=== PATIENT | female | born 1965 | race Caucasian/White ===

== ENCOUNTER 2019-03-22 13:13 | Outpatient (REF) | payer OTHER, SELFPAY ==
[2019-03-22 22:31] LABS: Anion Gap 9.6 mmol/L (3-11); BUN 13 mg/dL (7-18); CO2 26.4 mmol/L (21.0-32.0); CREATININE 0.86 mg/dL (0.55-1.02); Calcium 8.8 mg/dL (8.5-10.1); Chloride 103 mmol/L (98-107); Cholesterol 223 mg/dL (50-200); Glucose 92 mg/dL (70-100); Potassium 4.4 mmol/L (3.5-5.1); Sodium 139 mmol/L (136-145); Triglyceride 105 mg/dL (30-150)
[2019-03-22 23:30] LABS: Calculated LDL 109 mg/dL; HDL Cholesterol 93 mg/dL (40-60)
== END 2019-03-22 13:33 ==
LOC: NCHCN 13:13
PROVIDERS: PCP Family Medicine; Visit Provider Family Medicine
DX: Z00.00 Encounter for general adult medical examination without abnormal findings (principal); Z13.220 Encounter for screening for lipoid disorders; Z13.228 Encounter for screening for other metabolic disorders
CPT/HCPCS: 80048; 80061; 83721

== ENCOUNTER 2021-05-21 12:25 | Outpatient (REF) | payer OTHER, SELFPAY ==
--- NOTE | 2021-05-21 09:45 | PAPFT_PTH ---
PATIENT: Melanie Haskins LOC: [facility]#:[id number] AGE/SX: 55/F ROOM: RE05/21/[address]: Fidelia Hardy : 1965 BED: DIS: 05/21/2021 SPEC #: [id number] RECD: 05/22/21 13:02 STATUS: SELAM REScarlett #: [id number] MT: 05/21/21 09:[address]: Fidelia Hardy DEPT: [facility] Cytology RECD BY: Dara Alonzo Tissues: 1 - CX/ENDOCX FOR PAP SMEARS Procedures: PAP THIN PREP/[facility] Screening HPV DNA PROBE Comments: [id number]
== END 2021-05-21 12:26 | disposition home or self-care (01) ==
LOC: NCHCN 12:25
PROVIDERS: PCP Family Medicine; Visit Provider Family Medicine
DX: Z00.00 Encounter for general adult medical examination without abnormal findings (principal); Z12.4 Encounter for screening for malignant neoplasm of cervix; Z11.51 Encounter for screening for human papillomavirus (HPV)
CPT/HCPCS: 88142; 87624

== ENCOUNTER 2021-06-26 08:25 | Outpatient (REF) | payer OTHER, SELFPAY ==
[2021-06-26 22:03] LABS: HCT 39.7 % (36.0-46.0); HGB 13.3 g/dL (11.2-15.7); MCH 30.5 pg (27.0-33.0); MCHC 33.5 % (32.0-36.0); MCV 91.1 fL (80-95); MPV 9.2 fL (8.0-11.0); Platelet Count 412 10^3/uL (130-400); RBC 4.36 10^6/uL (3.93-5.22); RDW 11.6 % (11.7-14.6); RDW-SD 39.2 fL; WBC 8.22 10^3/uL (4.4-10.8)
[2021-06-26 22:14] LABS: Anion Gap 8.9 mmol/L (3-11); BUN 12 mg/dL (7-18); CO2 29.1 mmol/L (21.0-32.0); CREATININE 0.8 mg/dL (0.55-1.02); Calcium 9.7 mg/dL (8.5-10.1); Chloride 104 mmol/L (98-107); Glucose 122 mg/dL (74-106); Sodium 142 mmol/L (136-145)
== END 2021-06-26 08:26 | disposition home or self-care (01) ==
LOC: NCHCN 08:25
PROVIDERS: PCP Family Medicine; Visit Provider Nurse Practitioner Family
DX: R42 Dizziness and giddiness (principal); R11.0 Nausea
CPT/HCPCS: 80048; 85027

== ENCOUNTER 2021-12-17 13:57 | Outpatient (REF) | payer OTHER, SELFPAY ==
[2021-12-17 17:09] LABS: Hemoglobin A1C 5.9 % (<5.7)
[2021-12-17 17:17] LABS: TSH 0.93 uIU/mL (0.36-3.74)
== END 2021-12-17 13:58 | disposition home or self-care (01) ==
LOC: NCHCN 13:57
PROVIDERS: PCP Family Medicine; Visit Provider Family Medicine
DX: F07.81 Postconcussional syndrome (principal); F41.8 Other specified anxiety disorders; Z13.29 Encounter for screening for other suspected endocrine disorder; Z13.1 Encounter for screening for diabetes mellitus
CPT/HCPCS: 83036; 84443

== ENCOUNTER 2021-12-18 19:15 | Outpatient (REF) | payer OTHER, SELFPAY | END 2021-12-18 19:16 | disposition home or self-care (01) | LOC: NCHCN 19:15 | PROVIDERS: PCP Family Medicine; Visit Provider Family Medicine ==

== ENCOUNTER 2022-10-31 21:31 | Outpatient (REF) | payer BC, SELFPAY ==
[2022-10-31 21:59] LABS: HCT 43.4 % (36.0-46.0); HGB 14.7 g/dL (11.2-15.7); MCHC 33.9 % (32.0-36.0); MCV 89 fL (80-95); MPV 9.2 fL (8.0-11.0); Platelet Count 449 10^3/uL (130-400); RDW 11.9 % (11.7-14.6); RDW-SD 38.9 fL; WBC 7.73 10^3/uL (4.4-10.8)
[2022-10-31 22:14] LABS: ALT 22 U/L (14-59); AST 21 U/L (15-37); Albumin 4.1 g/dL (3.4-5.0); Alkaline Phosphatase 90 U/L (46-116); Anion Gap 8.2 mmol/L (3-11); BUN 10 mg/dL (7-18); Bilirubin, Total 0.6 mg/dL (0.2-1.0); CO2 30.8 mmol/L (21.0-32.0); Calcium 9.5 mg/dL (8.5-10.1); Calculated LDL 113 mg/dL (<100); Chloride 102 mmol/L (98-107); Cholesterol 216 mg/dL (<200); Estimated GFR 66.12 (mL/min/1.73m2); Glucose 131 mg/dL (74-106); HDL Cholesterol 85 mg/dL (40-60); Potassium 3.8 mmol/L (3.5-5.1); Sodium 141 mmol/L (136-145); Total Protein 8.1 g/dL (6.4-8.2); Triglyceride 92 mg/dL (<150)
== END 2022-10-31 21:32 | disposition home or self-care (01) ==
LOC: NCHCN 21:31
PROVIDERS: PCP Family Medicine; Visit Provider Internal Medicine
DX: Z13.220 Encounter for screening for lipoid disorders (principal); R73.03 Prediabetes
CPT/HCPCS: 80053; 80061; 85027

== ENCOUNTER 2024-03-23 17:09 | Outpatient (REF) | payer BC, SELFPAY ==
[2024-03-23 21:40] LABS: Anion Gap 8.9 mmol/L (3-11); BUN 12 mg/dL (7-18); CO2 29.1 mmol/L (21.0-32.0); Calcium 9.5 mg/dL (8.5-10.1); Chloride 101 mmol/L (98-107); Estimated GFR 65.71 (mL/min/1.73m2); Glucose 96 mg/dL (74-106); Sodium 139 mmol/L (136-145); Vitamin D 25 Total 41.3 ng/mL (30-100)
== END 2024-03-23 17:10 | disposition home or self-care (01) ==
LOC: NCHCN 17:09
PROVIDERS: PCP Family Medicine; Visit Provider Internal Medicine
DX: S62.91XD Unspecified fracture of right hand, subsequent encounter for fracture with routine healing (principal); X58.XXXD Exposure to other specified factors, subsequent encounter
CPT/HCPCS: 80048; 82306

== ENCOUNTER 2025-07-03 16:23 | Outpatient (REF) | payer BC, SELFPAY ==
[2025-07-03 21:27] LABS: HCT 42.3 % (36.0-46.0); HGB 14.3 g/dL (11.2-15.7); MCH 30.8 pg (27.0-33.0); MCHC 33.8 % (32.0-36.0); MCV 91 fL (80-95); MPV 9.0 fL (8.0-11.0); Platelet Count 441 10^3/uL (130-400); RBC 4.65 10^6/uL (3.93-5.22); RDW 12.5 % (11.7-14.6); RDW-SD 41.2 fL; WBC 7.33 10^3/uL (4.4-10.8)
[2025-07-03 21:49] LABS: Hemoglobin A1C 5.6 % (<5.7)
[2025-07-03 21:52] LABS: Anion Gap 5.7 mmol/L (3-11); BUN 17 mg/dL (7-18); CO2 32.3 mmol/L (21.0-32.0); Calcium 9.0 mg/dL (8.5-10.1); Chloride 102 mmol/L (98-107); Cholesterol 253 mg/dL (<200); Glucose 79 mg/dL (74-106); HDL Cholesterol 90 mg/dL (>or=50); Potassium 4.6 mmol/L (3.5-5.1); Sodium 140 mmol/L (136-145)
== END 2025-07-03 16:24 | disposition home or self-care (01) ==
LOC: NCHCN 16:23
PROVIDERS: PCP Family Medicine; Visit Provider Internal Medicine
DX: R73.03 Prediabetes (principal)
CPT/HCPCS: 80048; 80061; 85027; 83036